=== PATIENT | male | born 1995 | race American Indian/Alaskan Native ===

== ENCOUNTER 2021-04-05 11:23 | Outpatient (CLI) | payer OTHER ==
--- NOTE | 2021-04-05 15:43 | XRay Report ---
CHEST 2 VIEWS INDICATION / CLINICAL INFORMATION: PAIN IN CHEST. COMPARISON: None available. FINDINGS: SUPPORT DEVICES: None. HEART / MEDIASTINUM: No significant abnormality. LUNGS / PLEURA: No significant pulmonary or pleural abnormality. No pneumothorax. ADDITIONAL FINDINGS: No significant additional findings. IMPRESSION: 1. No acute findings. Signer Name: Gurpreet Purdy MD Signed: 04/05/2021 3:39 PM Workstation Name: [id number]
--- NOTE | 2021-04-05 15:46 | XRay Report ---
BILATERAL HIPS HISTORY: Hip pain. COMPARISON: None. TECHNIQUE: 2 views of the bilateral hips were obtained. FINDINGS: Bones: No fracture or dislocation. Joint spaces: Maintained. Soft tissues: No significant abnormality. Additional findings: None. IMPRESSION: 1. No significant abnormality. Signer Name: Gurpreet Purdy MD Signed: 04/05/2021 3:42 PM Workstation Name: [id number]
--- NOTE | 2021-04-05 15:51 | XRay Report ---
RIGHT SHOULDER HISTORY: Pain. COMPARISON: None. TECHNIQUE: 3 views of the right shoulder were obtained. FINDINGS: Bones: No fracture or dislocation. Joint spaces: Maintained. Soft tissues: No significant abnormality. Additional findings: None. IMPRESSION: Unremarkable right shoulder radiographs. No acute osseous abnormality or significant degenerative alonso nge. Signer Name: Gurpreet Purdy MD Signed: 04/05/2021 3:46 PM Workstation Name: [id number]
--- NOTE | 2021-04-05 15:52 | XRay Report ---
LUMBAR SPINE HISTORY: Pain. COMPARISON: None. TECHNIQUE: 3 view(s) of the lumbar spine obtained. FINDINGS: Vertebrae: Normal alignment. No fracture or significant abnormality. Disc Spaces:No significant abnormality. Facet Joints:No significant abnormality. Prevertebral Soft Tissues:No significant abnormality. Additional findings: None. IMPRESSION: Normal lumbar spine radiographs. Signer Name: Gurpreet Purdy MD Signed: 04/05/2021 3:47 PM Workstation Name: [id number]
== END 2021-04-05 11:24 | disposition home or self-care (01) ==
LOC: XRAY 11:23
PROVIDERS: ATTEND Internal Medicine
DX: M54.50 Low back pain, unspecified (principal); M79.642 Pain in left hand; M79.641 Pain in right hand; M25.511 Pain in right shoulder; M25.552 Pain in left hip; M25.551 Pain in right hip
CPT/HCPCS: 71046; 72100; 73521